=== PATIENT | male | born 2000 | race Caucasian/White ===

== ENCOUNTER 2021-02-25 13:24 | Emergency (ER) | payer OTHER ==
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
[2021-02-25 16:36] VITALS: BP 140/75
== END 2021-02-25 16:36 | disposition home or self-care (01) ==
LOC: ED 13:24
DX: S20.219A Contusion of unspecified front wall of thorax, initial encounter (principal); S50.11XA Contusion of right forearm, initial encounter; S80.02XA Contusion of left knee, initial encounter; S16.1XXA Strain of muscle, fascia and tendon at neck level, initial encounter; V43.52XA Car driver injured in collision with other type car in traffic accident, initial encounter; W22.11XA Striking against or struck by driver side automobile airbag, initial encounter; Y93.89 Activity, other specified; Y92.410 Unspecified street and highway as the place of occurrence of the external cause
CPT/HCPCS: 99282; 99284